=== PATIENT | male | born 1970 | race Hispanic/Latino ===

== ENCOUNTER 2016-08-15 17:44 | Inpatient (IN) | payer MEDICAID, OTHER ==
[2016-08-15 18:41] LABS: BASO % 0.5 % (0.0-2.0); EOS # 0.1 K/uL (0.0-0.7); EOS % 1.3 % (0.0-4.0); HEMATOCRIT 46.7 % (35.0-51.0); LYMPH # 2.1 K/uL (1.0-4.3); LYMPH % 24.4 % (20.0-40.0); MEAN CELL VOLUME 93.7 fL (80.0-94.0); MEAN CORPUSCULAR HGB CONC 34.2 g/dL (33.0-37.0); MEAN PLATELET VOLUME 8.2 fL (7.2-11.7); MONO # 0.8 K/uL (0.0-0.8); MONO % 8.7 % (0.0-10.0); NRBC % 0.1 % (0.0-2.0); RED CELL DISTRIBUTION WIDTH 13.8 % (11.5-14.5); WHITE BLOOD COUNT 8.7 K/uL (4.8-10.8)
[2016-08-15 18:45] LABS: CHLORIDE 102 mmol/L (98-107)
[2016-08-15 18:46] LABS: POTASSIUM 4.2 mmol/L (3.6-5.2); SODIUM 140 mmol/L (132-148)
[2016-08-15 18:48] LABS: ALB/GLOB RATIO 1.5 (1.0-2.1); ALKALINE PHOSPHATASE 88 U/L (38-126); AST/SGOT 25 U/L (17-59); BILIRUBIN,TOTAL 0.5 mg/dL (0.2-1.3); CARBON DIOXIDE 19 mmol/L (22-30); GFR AFRICAN-AMERICAN > 60; TOTAL PROTEIN 8.1 g/dL (6.3-8.3)
[2016-08-15 18:49] LABS: ALCOHOL SERUM 79 mg/dl (0-10); ALT/SGPT 20 U/L (21-72); BLOOD UREA NITROGEN 10 mg/dL (9-20); CALCIUM 9.3 mg/dl (8.6-10.4); GLUCOSE,RANDOM 93 mg/dL (75-110)
[2016-08-15 18:50] LABS: URINE BACTERIA OCC (<OCC); URINE BILIRUBIN NEGATIVE (NEGATIVE); URINE BLOOD NEGATIVE (NEGATIVE); URINE COLOR Yellow (YELLOW); URINE GLUCOSE (UA) NORMAL (Normal); URINE KETONE NEGATIVE (NEGATIVE); URINE LEUKOCYTE ESTERASE NEG Leu/uL (Negative); URINE PROTEIN 1+ mg/dL (NEGATIVE); URINE UROBILINOGEN NORMAL mg/dL (0.2-1.0); WBC URINE 5 /hpf (0-5)
--- NOTE | 2016-08-15 19:56 | C.PDOC ---
History Of Present Illness Patient is a 46 year old male who presents to the ER an ETOH detox prescreen. Patient states he drinks a case of beer each day and admits of ETOH use today. Patient failed ETOH detox approximately 10 times. Patient reports to drinking last night, blacked out, and broke multiple windows in the house he rents. Patient is estranged from his family and ex- due to ETOH abuse. Patient also smokes 1/2 pack of tobacco a day, currently denies any pain or complaints. Time Seen by Provider: 08/15/16 18:54 Chief Complaint (Nursing): Substance Abuse History Per: Patient History/Exam Limitations: no limitations Modifying Factor(s): Alcohol Past Medical History Reviewed: Historical Data, Nursing Documentation, Vital Signs Vital Signs: Last Vital Signs Temp 98 F 08/15/16 21:15 Pulse 101 H 08/15/16 22:28 Resp 18 08/15/16 21:15 BP 138/86 08/15/16 22:28 Pulse Ox 98 08/15/16 22:16 - Medical History PMH: HTN (toprol XL, 50mg OD, amlodipine 5mg OD) Family History: States: Unknown Family Hx - Social History Hx Alcohol Use: Yes Hx Substance Use: Yes Review Of Systems Constitutional: Negative for: Fever, Chills Cardiovascular: Negative for: Palpitations Respiratory: Negative for: Cough Gastrointestinal: Negative for: Nausea, Vomiting, Abdominal Pain, Diarrhea Physical Exam - Physical Exam Appears: Non-toxic, Other (ready face, anxious) Skin: Normal Color, Warm, Dry Head: Atraumatic, Normacephalic Oral Mucosa: Moist Chest: Symmetrical Cardiovascular: Rhythm Regular (Tachycardic) Respiratory: Normal Breath Sounds, No Rales, No Rhonchi, No Wheezing Gastrointestinal/Abdominal: Soft, No Tenderness Neurological/Psych: Oriented x3, Normal Speech, Normal Cognition ED Course And Treatment - Laboratory Results Result Diagrams: 08/15/16 18:34 08/15/16 18:34 O2 Sat by Pulse Oximetry: 98 (Room air) Pulse Ox Interpretation: Normal Progress Note: Discussed with crisis at 19:00. Librium PO, desyrel PO, and atarax PO administered. repeat librium dose and re-eval. Ativan PO and re-eval. Critical Care Time - Critical Care Note Total Time (in mins): 90 Documented critical care: time excludes all time spent performing seperately billable procedures. Disposition Doctor Will See Patient In The: Hospital Counseled Patient/Family Regarding: Studies Performed, Diagnosis - Disposition Disposition: HOSPITALIZED Disposition Time: 20:00 Condition: FAIR - Clinical Impression Clinical Impression: Alcohol dependence - Scribe Statement The provider has reviewed the documentation as recorded by the Mandieibcathy Newton All medical record entries made by the Mandieibcathy were at my direction and personally dictated by me. I have reviewed the chart and agree that the record accurately reflects my personal performance of the history, physical exam, medical decision making, and the department course for this patient. I have also personally directed, reviewed, and agree with the discharge instructions and disposition.
[2016-08-15] MEDS: Metoprolol Succinate 100 mg XL Tab PO SCH (21:54)
[2016-08-16] MEDS: Multiple Vitamins Tab PO SCH (09:41)
[2016-08-16] MEDS: Metoprolol Succinate 100 mg XL Tab PO SCH (09:43)
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
[2016-08-17] MEDS: Multiple Vitamins Tab PO SCH (09:08)
[2016-08-17] MEDS: Metoprolol Succinate 100 mg XL Tab PO SCH (09:09)
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
[2016-08-18] MEDS: Multiple Vitamins Tab PO SCH (09:26)
[2016-08-18] MEDS: Metoprolol Succinate 100 mg XL Tab PO SCH (09:29)
--- NOTE | 2016-08-18 15:12 | PCM.PYCHPN ---
Psychiatric Progress Note - Psychiatric Progress Note Patient seen today, length of contact: 18 min Patient Chief Complaint: "I am better. I need naltrexone" Problems Identified/Issues Discussed: The pt is seen, chart reviewed, case discussed with staff. The pt is compliant with medications and reports no side-effects. Symptoms are improving but needs more time to stabilize. Still anxious, After care discussed, support and psychoeducation given. Naltrexone started - all risks/benefits discussed He will see his PCP in 4 weeks and get a blood work Medication Change: Yes (detox changes daily, naltrexone) Medical Record Reviewed: Yes Mental Status Examination - Cognitive Function Orientation: Person, Place, Situation, Time Memory: Intact Attention: WNL Concentration: WNL Association: WNL Fund of Knowledge: WNL - Mood Mood: Depressed, Anxious - Affect Affect: Broad - Speech Speech: Appropriate - Formal Thought Process Formal Thought Process: No Impairment - Suicidal Ideation Suicidal Ideation: No - Homicidal Ideation Homicidal Ideation: No Goal/Treatment Plan - Goal/Treatment Plan Need for Continued Stay: Discharge may exacerbated symptoms, Severe functional impairment Progress Toward Problem(s) and Goals/Treatment Plan: Alcohol Withdrawal -Librium taper -Supportive therapy -Group therapy and Individualized therapy Alcohol Use Disorder -Supportive therapy -Group therapy and Individualized therapy -CA for abstinence -consider Vivitrol shot after [employer]. -For now, naltrexone started Major Depressive Disorder and anxiety -lexapro 20 Generalized Anxiety Disorder -lexapro 20 mg PO daily -increase gabapentin for anxiety -buspar increased Nicotine Use Disorder -1 nicotine path transdermal daily Peripheral Neuropathy -Gabapentin 600 mg PO TID Hypertension -Continue Medical Management Estimated Date of D/C: 08/19/16 - Smoking Cessation Smoking Cessation Initiated: Yes
[2016-08-19 05:01] VITALS: RESP 18
[2016-08-19 08:26] VITALS: BP 114/76; PULSE 71; TEMP 98; O2SAT 98
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
[2016-08-19] MEDS: Multiple Vitamins Tab PO SCH (09:02)
[2016-08-19] MEDS: Metoprolol Succinate 100 mg XL Tab PO SCH (09:02)
== END 2016-08-19 09:30 | disposition home or self-care (01) | DRG 750 ==
LOC: C.ER 17:44 → C.7D 19:55
PROC: HZ2ZZZZ Detoxification Services for Substance Abuse Treatment (ICD-10-PCS; principal; 2016-08-15)
PROC: GZHZZZZ Group Psychotherapy (ICD-10-PCS; 2016-08-15)
PROC: GZ56ZZZ Individual Psychotherapy, Supportive (ICD-10-PCS; 2016-08-15)
DX: F10.230 Alcohol dependence with withdrawal, uncomplicated (principal); F10.229 Alcohol dependence with intoxication, unspecified; F33.1 Major depressive disorder, recurrent, moderate; I10 Essential (primary) hypertension; G62.9 Polyneuropathy, unspecified; F17.210 Nicotine dependence, cigarettes, uncomplicated; F41.1 Generalized anxiety disorder; Y90.3 Blood alcohol level of 60-79 mg/100 ml

== ENCOUNTER 2017-07-23 20:38 | Inpatient (IN) | payer MEDICAID, OTHER ==
[2017-07-23 20:58] VITALS: BMI 27.9
[2017-07-23] MEDS ORDERED: Multivitamin (MVI) 10 ML, Thiamine 100 MG, Folic Acid 1 MG in Sodium Chloride 0.9% 1,00... IV STA (21:34)
--- NOTE | 2017-07-23 21:36 | C.PDOC ---
History Of Present Illness <Neville Diallo M - Last Filed: 07/24/17 12:08> <Gladys Driscoll - Last Filed: 07/24/17 20:10> 47 y/o male with a PMHx of alcohol abuse and multiple failures at detox, presents requesting detox from alcohol. Last drink was earlier this afternoon. Patient reports history of withdrawal seizures. On arrival patient is uncooperative, cursing, belligerent. States that if he is not offered detox bed he will kill himself. PMD: None (Gladys Driscoll) <Neville Diallo M - Last Filed: 07/24/17 12:08> History Per: Patient History/Exam Limitations: intoxication Onset/Duration Of Symptoms: Days Current Symptoms Are (Timing): Still Present Modifying Factor(s): Alcohol <Gladys Driscoll - Last Filed: 07/24/17 20:10> Time Seen by Provider: 07/23/17 21:33 Chief Complaint (Nursing): Psychiatric Evaluation Past Medical History Reviewed: Historical Data, Nursing Documentation, Vital Signs - Medical History PMH: Bipolar Disorder, Depression, HTN (toprol XL, 50mg OD, amlodipine 5mg OD) Denies: Diabetes, Hepatitis, HIV, Seizures, Sexually Transmitted Disease Other PMH: Alcohol abuse Family History: States: Unknown Family Hx - Social History Hx Alcohol Use: Yes Hx Substance Use: Yes (weed) - Immunization History Hx Tetanus Toxoid Vaccination: Yes Hx Influenza Vaccination: Yes Hx Pneumococcal Vaccination: No <Gladys Driscoll - Last Filed: 07/24/17 20:10> Vital Signs: Last Vital Signs Temp 97.8 F 07/24/17 16:56 Pulse 101 H 07/24/17 16:56 Resp 20 07/24/17 16:56 BP 156/91 H 07/24/17 16:56 Pulse Ox 95 07/24/17 16:56 - [facility] Procedures DETOXIFICATION SERVICES FOR SUBSTANCE ABUSE TREATMENT (08/15/16) GROUP PSYCHOTHERAPY (08/15/16) INDIVIDUAL PSYCHOTHERAPY, SUPPORTIVE (08/15/16) Review Of Systems Except As Marked, All Systems Reviewed And Found Negative. Psych: Positive for: Suicidal ideation, Other (intoxication) <Gladys Driscoll - Last Filed: 07/24/17 20:10> Physical Exam - Physical Exam Appears: No Acute Distress, Agitated Skin: Warm, Dry Head: Atraumatic, Normacephalic Eye(s): bilateral: Normal Inspection, PERRL, EOMI Nose: Normal Oral Mucosa: Moist Neck: Normal, Normal ROM Chest: Symmetrical Cardiovascular: Rhythm Regular, No Murmur Respiratory: Normal Breath Sounds, No Accessory Muscle Use Gastrointestinal/Abdominal: Bowel Sounds (active), Soft, No Tenderness, No Guarding Extremity: Bilateral: Atraumatic, Normal Color And Temperature, Normal ROM Neurological/Psych: Oriented x3, Other (Appears intoxicated, uncooperative) <Gladys Driscoll - Last Filed: 07/24/17 20:10> ED Course And Treatment - Laboratory Results Result Diagrams: 07/23/17 21:56 07/23/17 21:56 <Neville Diallo - Last Filed: 07/24/17 12:08> - Laboratory Results Result Diagrams: 07/23/17 21:56 07/23/17 21:56 Lab Interpretation: Normal Interpretation Of Abnormal: marked alcohol elevation O2 Sat by Pulse Oximetry: 96 (RA) Pulse Ox Interpretation: Normal Progress Note: Despite multiple pushes of Ativan and Geodon,pt remains alert curing and threatening to staff.Will maintain restraints,add ketamine to sedation regimen <Gladys Driscoll - Last Filed: 07/24/17 20:10> Medical Decision Making <Neville Diallo - Last Filed: 07/24/17 12:08> <Gladys Driscoll - Last Filed: 07/24/17 20:10> Medical Decision Making: Time: 21:34 Initial Plan: --Alcohol serum --Urine drug screen --CMP --CBC w/ differential --Urinalysis --Ativan 2 mg IVP --IV fluids --Placed on 1:1 observation --Pending crisis evaluation Pt is now too sedated to be interviewed.Will await return of sobriety to complete interview process (Gladys Driscoll) Disposition <Neville Diallo - Last Filed: 07/24/17 12:08> - Disposition Disposition Time: 20:09 <Gladys Driscoll - Last Filed: 07/24/17 20:10> - Disposition Disposition: HOSPITALIZED Condition: FAIR - Clinical Impression Clinical Impression: Alcohol-induced psychosis, Single major depressive episode, severe, with psychosis <Neville Diallo - Last Filed: 07/24/17 12:08> - Scribe Statement The provider has reviewed the documentation as recorded by the Scribe (Carmen Carrizales) <Gladys Driscoll - Last Filed: 07/24/17 20:10> - Scribe Statement Provider Attestation: All medical record entries made by the Scribe were at my direction and personally dictated by me. I have reviewed the chart and agree that the record accurately reflects my personal performance of the history, physical exam, medical decision making, and the department course for this patient. I have also personally directed, reviewed, and agree with the discharge instructions and disposition. (Gladys Driscoll) Addendum <Neville Diallo - Last Filed: 07/24/17 12:08> <Gladys Driscoll - Last Filed: 07/24/17 20:10> Addendum: 07/24/17 12:[address] Storey and will admit to detox floor. patient remained comfortable during evaluation (Neville Diallo) Disposition <Neville Diallo - Last Filed: 07/24/17 12:08> Disposition Time: 20:09 <Gladys Driscoll - Last Filed: 07/24/17 20:10> Clinical Impression: Moderate major depression, single episode, Alcohol intoxication Disposition: HOSPITALIZED Condition: FAIR
[2017-07-23 22:02] LABS: BASO # 0.1 K/uL (0.0-0.2); BASO % 0.8 % (0.0-2.0); EOS # 0.2 K/uL (0.0-0.7); EOS % 1.7 % (0.0-4.0); HEMOGLOBIN 16.9 g/dL (12.0-18.0); LYMPH # 3.2 K/uL (1.0-4.3); LYMPH % 29.8 % (20.0-40.0); MEAN CELL VOLUME 93.6 fL (80.0-94.0); MEAN CORPUSCULAR HEMOGLOBIN 32.9 pg (27.0-31.0); MEAN CORPUSCULAR HGB CONC 35.1 g/dL (33.0-37.0); MEAN PLATELET VOLUME 7.4 fL (7.2-11.7); MONO # 0.8 K/uL (0.0-0.8); MONO % 7.8 % (0.0-10.0); NEUT # 6.4 K/uL (1.8-7.0); NEUT % 59.9 % (50.0-75.0); NRBC % 0.1 % (0.0-2.0); RBC 5.14 Mil/uL (4.40-5.90); RED CELL DISTRIBUTION WIDTH 14.3 % (11.5-14.5); WHITE BLOOD COUNT 10.7 K/uL (4.8-10.8)
[2017-07-23 22:06] LABS: URINE BACTERIA RARE (<OCC); URINE BILIRUBIN NEGATIVE (NEGATIVE); URINE BLOOD 1+ (NEGATIVE); URINE CLARITY Hazy (Clear); URINE GLUCOSE (UA) NORMAL (Normal); URINE LEUKOCYTE ESTERASE 3+ Leu/uL (Negative); URINE PROTEIN NEGATIVE (NEGATIVE); URINE UROBILINOGEN NORMAL mg/dL (0.2-1.0)
[2017-07-23 22:09] LABS: URINE COLOR YELLOW (YELLOW)
[2017-07-23 22:14] LABS: ALB/GLOB RATIO 1.3 (1.0-2.1); ALBUMIN 4.8 g/dL (3.5-5.0); ALT/SGPT 28 U/L (21-72); AST/SGOT 24 U/L (17-59); BLOOD UREA NITROGEN 6 mg/dL (9-20); CALCIUM 8.9 mg/dl (8.6-10.4); GFR AFRICAN-AMERICAN > 60; GFR NON-AFRICAN AMERICAN > 60
[2017-07-23 22:18] LABS: BARBITURATES, UR NEGATIVE (NEGATIVE); BENZODIAZEPINES, UR NEGATIVE (NEGATIVE); OPIATES, UR NEGATIVE (NEGATIVE); PHENCYCLIDINE, UR NEGATIVE (NEGATIVE)
[2017-07-23] MEDS ORDERED: Ketamine 50 mg/ml Inj (10 ml) IV ONE (23:54)
--- NOTE | 2017-07-24 13:41 | PCM.PSYCH ---
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 Patient states he started drinking again during the second week in June. He states he started to feel depressed again and went back to drinking. He has been for 7 years but when he stops to think about his divorce and kids he gets depressed. He states they because his had an affair. Yesterday he was drinking with his buddies and he stated he was saying things like "I would rather be " and his friends became worried and brought him to the ER. Per the ER the patient was uncooperative and belligerent yesterday evening stating he wanted to harm himself. At this time patient denies thoughts of hurting himself or others. Patient denies hearing voices or seeing things. He was previously sober for one year prior to his recent relapse. He completed a 6 month program at [facility] and he stayed living there up until May of 2017. He states he was also going to AA meetings which helped him stay sober. Last year was he was at [facility] for detox. Patient denies seizures from alcohol withdrawal, denies intubation, denies admission to the medical floor due to alcohol withdrawal. Patient states he drinks about 6 pack-12 pack of beer per day. Smokes marijuana daily. Patient smokes 1 pack per day for the past 30 years. Patient denies other illicit drug use. Psych History: Major depressive disorder Medical History: HTN Family History: Maternal uncle alcohol abuse Medications: Metoprolol; Amlodipine; Gabapentin Allergies: NKDA Current Medications: Active Medications Generic Name Dose Route Start Last Admin Trade Name Davidq PRN Reason Stop Dose Admin Amlodipine Besylate 5 mg 07/24/17 13:15 Norvasc PO DAILY MEHDI Buspirone HCl 15 mg 07/24/17 18:00 Buspar PO BID MEHDI Chlordiazepoxide 0 mg 07/24/17 18:00 Librium PO 07/29/17 17:59 Q6 MEHDI Taper Chlordiazepoxide 25 mg 07/24/17 13:16 Librium PO Q4H PRN Alcohol Withdrawal Clonidine HCl 0.1 mg 07/24/17 13:16 Catapres PO Q4H PRN Symptoms of alcohol withdrawl Escitalopram Oxalate 20 mg 07/25/17 10:00 Lexapro PO DAILY [facility] Folic Acid 1 mg 07/24/17 13:30 Folic Acid PO DAILY [facility] Gabapentin 300 mg 07/24/17 14:00 Neurontin PO TID [facility] Home Med 50 mg 07/24/17 13:13 Hydroxyzine Pamoate [Vistaril] PO Q6 PRN Anxiety Metoprolol Succinate 12.5 mg 07/25/17 10:00 Toprol Xl PO DAILY [facility] Multivitamins 1 tab 07/24/17 13:30 Hexavitamin PO DAILY [facility] Thiamine HCl 100 mg 07/24/17 13:30 Vitamin B1 Tab PO DAILY [facility] Trazodone HCl 100 mg 07/24/17 22:00 Desyrel PO HS [facility] Past Psychiatric History - Past Psychiatric History Pertinent Medical Hx (Current Medical&Sleep Prob, Allergies): Allergies Allergy/AdvReac Type Severity Reaction Status Date / Time No Known Allergies Allergy Verified 07/23/17 20:57 Escitalopram [Lexapro] 20 mg PO DAILY 08/15/16 Gabapentin [Neurontin] 600 mg PO BID 08/15/16 Metoprolol Succinate XL [Toprol XL] 12.5 mg PO STAT 08/15/16 amLODIPine [Norvasc] 5 mg PO DAILY 08/15/16 hydrOXYzine Pamoate [Vistaril] 50 mg PO PRN PRN 08/15/16 traZODone [trazodone Hydrochloride] 100 mg PO HS 08/15/16 Gabapentin [Neurontin] 600 mg PO TID #90 tab 08/18/16 Naltrexone [Revia] 50 mg PO DAILY #30 tab 08/18/16 busPIRone [Buspar] 15 mg PO BID #60 tab 08/18/16 traZODone [Desyrel] 100 mg PO HS #30 tab 08/18/16 Review of Systems - Constitutional Constitutional: Chills - Neurological Neurological: Tremor - Psychiatric Psychiatric: Depression. absent: Anxiety, Hallucinations, Homicidal Ideation, Suicidal Ideation, Visual Hallucinations, Tactile Hallucinations Mental Status Examination - Personal Presentation Personal Presentation: Looks stated age - Affect Affect: Constricted - Motor Activity Motor Activity: Calm - Reliability in Providing Information Reliability in Providing Information: Good - Speech Speech: Organized - Mood Mood: Anxious - Formal Thought Process Formal Thought Process: No Impairment - Cognitive Functions Orientation: Person, Place, Situation, Time Sensorium: Alert Judgement: Intact, as evidence by: Insight regarding need for hospitalization Memory: Recent intact, as evidence by: Ability to recall events of the day - Strength & Assets Inventory Strength & Assets Inventory: Employment status DSM 5 DX - DSM 5 DSM 5 Diagnosis: Major Depression Alcohol withdrawal Alcohol use d/o - severe - Recommended/Plan of Treatment Treatment Recommendations and Plan of Treatment: Norvasc 5mg daily Metoprolol Succinate 12.5mg dialy Buspirone 15mg po bid Librium 25mg po q6h Lexapro 20mg po daily Gabapentin 300mg tid Trazodone 100mg po hs As needed medications All risks, benefits and alternatives of the meds discussed, and the pt agreed and understood. Attend groups and activities Individual therapy daily Supportive therapy and psychoeducation [place] for abstinence CBT for relapse prevention Encourage MAT Refer to rehab or IOP, and self-help groups Refer to outpatient program Teach healthy lifestyle methods, i.e. diet, exercise, meditation 34 min
[2017-07-24] MEDS: Multiple Vitamins Tab PO SCH (13:43)
--- NOTE | 2017-07-24 14:01 | PCM.BM ---
Treatment assets and liabiliti Patient Assests: insightful, self-reliant, good past tx response Patient Liabilities: financial problems, poor support system, relationship conflicts, substance abuse, medical problems, other - Milieu Protocol Maintain good personal hygiene: daily Encourage regular showers, daily Remind patient to perform daily oral care, daily Assist patient to perform ADL's, every shift Encourage regular showers, every shift Remind patient to perform daily oral care, every shift Assist patient to perform ADL's Maintain personal safety: daily Educate patient to report safety concerns to staff, daily Monitor environment for contraband/sharps, every shift Educate patient to report safety concerns to staff, every shift Monitor environment for contraband/sharps Medication safety: Monitor for expected outcome, potential side effects: daily, every shift, Assess barriers to learning: daily, every shift, Assess readiness for medication education: daily, every shift Milieu Narrative: Norvasc 5mg daily Metoprolol Succinate 12.5mg dialy Buspirone 15mg po bid Librium 25mg po q6h Lexapro 20mg po daily Gabapentin 300mg tid Trazodone 100mg po hs As needed medications All risks, benefits and alternatives of the meds discussed, and the pt agreed and understood. Attend groups and activities Individual therapy daily Supportive therapy and psychoeducation [place] for abstinence CBT for relapse prevention Encourage MAT Refer to rehab or IOP, and self-help groups Refer to outpatient program Teach healthy lifestyle methods, i.e. diet, exercise, meditation 34 min Discharge/Continuing Care - Treatment Team Participation Patient/Family/SO Statement: Norvasc 5mg daily Metoprolol Succinate 12.5mg dialy Buspirone 15mg po bid Librium 25mg po q6h Lexapro 20mg po daily Gabapentin 300mg tid Trazodone 100mg po hs As needed medications All risks, benefits and alternatives of the meds discussed, and the pt agreed and understood. Attend groups and activities Individual therapy daily Supportive therapy and psychoeducation [place] for abstinence CBT for relapse prevention Encourage MAT Refer to rehab or IOP, and self-help groups Refer to outpatient program Teach healthy lifestyle methods, i.e. diet, exercise, meditation 34 min
[2017-07-24] MEDS: Tmp-Smz 800 mg-160 mg DS Tab PO SCH (19:51)
[2017-07-25] MEDS: Tmp-Smz 800 mg-160 mg DS Tab PO SCH (08:49)
[2017-07-25] MEDS: Multiple Vitamins Tab PO SCH (09:58)
[2017-07-25] MEDS ORDERED: Metoprolol Succinate 12.5 mg XL PO SCH (10:00)
--- NOTE | 2017-07-25 10:07 | PCM.PYCHDC ---
Mental Status Examination - Mental Status Examination Orientation: Person, Place, Situation, Time Memory: Intact Affect: Broad Speech: Appropriate Attention: WNL Concentration: WNL Association: WNL Fund of Knowledge: WNL Formal Thought Process: No Impairment Description of patient's judgement and insight: limited/limited Psychotic Thoughts and Behaviors: denied Suicidal Ideation: No Current Homicidal Ideation?: No Plan: denied Discharge Summary - Discharge Note Reason for Hospitalization: This is a 47 year old male with past medical history of HTN, , 4 children (18yo; 16yo; 14yo; 12yo), lives with a roommate in [place], 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 Patient states he started drinking again during the second week in June. He states he started to feel depressed again and went back to drinking. He has been for 7 years but when he stops to think about his divorce and kids he gets depressed. He states they because his had an affair. Yesterday he was drinking with his buddies and he stated he was saying things like "I would rather be " and his friends became worried and brought him to the ER. Per the ER the patient was uncooperative and belligerent yesterday evening stating he wanted to harm himself. At this time patient denies thoughts of hurting himself or others. Patient denies hearing voices or seeing things. He was previously sober for one year prior to his recent relapse. He completed a 6 month program at [facility] and he stayed living there up until May of 2017. He states he was also going to AA meetings which helped him stay sober. Last year was he was at [facility] for detox. Patient denies seizures from alcohol withdrawal, denies intubation, denies admission to the medical floor due to alcohol withdrawal. Patient states he drinks about 6 pack-12 pack of beer per day. Smokes marijuana daily. Patient smokes 1 pack per day for the past 30 years. Patient denies other illicit drug use. Psych History: Major depressive disorder Medical History: HTN Family History: Maternal uncle alcohol abuse Medications: Metoprolol; Amlodipine; Gabapentin Allergies: NKDA Consultations:: List each consultation separately and include: 1. Reason for request. 2. Findings. 3. Follow-up Summary of Hospital Course include:: 1. Description of specific treatment plan utilized for patients during their course of treatmen. 2. Summarize the time- course for resolution of acute symptoms and/or regressed behaviors. 3. Describe issues identified and worked on during hospitalization. 4. Describe medication utilized. 5. Describe medical problems identified and treated. 6. Reassessment of suicide risk Summary of Hospital Course: The pt was admitted and started on treatment with psychotherapy, support, psychoeducation and medications. AR and CBT used. The pt attended some groups and activities, as well as milieu therapy. All the risks and benefits of medications were discussed and the patient understood and agreed. The pt requested earlier discharge. This MD educate this patient regarding alcohol withdrawal symptoms including but not limited to nausea, headache, hot and cold sweat, seizure and . This MD recommend to complete the detox treatment. The pt stated that he understand importance of completion of treatment. However, he needs to be d/c because he believes that his withdrawal symptoms are over. He reported craving for etoh. He reported that after discharge he wants to meet with his sponsor and counselor to stay sober. Pt was educated about the early relapse on alcohol. Pt was also educated the different consequences due to noncompliance issues as well as not completing the detox treatment. Pt verbalized understanding and he stated that he will return to nearest ER in case of withdrawal symptoms. Pt denied depressive symptoms, including SI, HI, intent or plan. He denied any access to fire-arm. He denied any previous suicide attempt. He reproted that he wants to live healthy life because he has children and has good social support. 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 . - Diagnosis (1) Alcohol abuse Current Visit: Yes Status: Acute (2) Alcohol dependence Current Visit: Yes Status: Acute - Final Diagnosis (DSM 5) Condition upon Discharge: FAIR DSM 5: alcohol dependence severe alcohol withdrawal symptoms Major depressive disorder UTI Disposition: AGAINST MEDICAL ADVICE Follow-up Treatment Plan: Continue medications after discharge. Follow after care plan as discussed. Use relapse prevention copying skills Return to ER or call 911 if suicidal, homicidal or symptoms relapse. Stay away from stress, alcohol and drugs. See primary doctor once a year. Time spend 28 minutes Prescriptions/Medication Reconciliation: Sulfamethoxazole/Trimethoprim [Bactrim DS Tab] 1 tab PO Q12H 4 Days #8 tab - Smoking Cessation Smoking Cessation Medication prescribed: Yes - Antipsychotic Medications Pt discharged on 2 or more routine antipsychotic medications: No
[2017-07-25 12:37] VITALS: BP 137/91; PULSE 89; RESP 20; TEMP 98.1; O2SAT 96
== END 2017-07-25 13:02 | disposition left against medical advice (07) | DRG 749 ==
LOC: C.ER 20:38 → C.7D 07-24 12:07
PROVIDERS: ADMIT Psychiatry & Neurology Psychiatry; ATTEND Psychiatry & Neurology Psychiatry
PROC: HZ2ZZZZ Detoxification Services for Substance Abuse Treatment (ICD-10-PCS; principal; 2017-07-24)
DX: F10.230 Alcohol dependence with withdrawal, uncomplicated (principal); F32.1 Major depressive disorder, single episode, moderate; N39.0 Urinary tract infection, site not specified; F10.220 Alcohol dependence with intoxication, uncomplicated; F10.259 Alcohol dependence with alcohol-induced psychotic disorder, unspecified; F12.90 Cannabis use, unspecified, uncomplicated; F17.210 Nicotine dependence, cigarettes, uncomplicated; I10 Essential (primary) hypertension; Y90.8 Blood alcohol level of 240 mg/100 ml or more

== ENCOUNTER 2018-03-03 23:46 | Inpatient (IN) | payer MEDICAID, OTHER ==
[2018-03-03 23:48] VITALS: BMI 27.9
--- NOTE | 2018-03-04 00:06 | C.PDOC ---
History Of Present Illness 47 year old male presents to the ED requesting alcohol detox. Patient re ports his last drink was 20 minutes [employer]. Patient denies SI/HI, hallucinations, CP, SOB, abdominal pain, injury, fall, trauma. Time Seen by Provider: 03/04/18 00:06 Chief Complaint (Nursing): Substance Abuse History Per: Patient History/Exam Limitations: intoxication Onset/Duration Of Symptoms: Hrs Current Symptoms Are (Timing): Still Present Suicide/Self Injury Attempted (Context): None Modifying Factor(s): Alcohol Associated Symptoms: denies: Depression, Suicidal Thoughts, Suicidal Plan Recent travel outside of the [place]: No Additional History Per: Patient Past Medical History Reviewed: Historical Data, Nursing Documentation, Vital Signs - Medical History PMH: Anxiety, Bipolar Disorder, Depression, HTN (toprol XL, 50mg OD, amlodipine 5mg OD) Denies: Diabetes, Hepatitis, HIV, Chronic Kidney Disease, Seizures, Sexually Transmitted Disease Surgical History: No Surg Hx - [facility] DETOXIFICATION SERVICES FOR SUBSTANCE ABUSE TREATMENT (07/24/17) GROUP PSYCHOTHERAPY (08/15/16) INDIVIDUAL PSYCHOTHERAPY, SUPPORTIVE (08/15/16) Family History: States: Unknown Family Hx - Social History Hx Alcohol Use: Yes Hx Substance Use: Yes (weed) - Immunization History Hx Tetanus Toxoid Vaccination: Yes Hx Influenza Vaccination: Yes Hx Pneumococcal Vaccination: No Review Of Systems Constitutional: Negative for: Fever, Chills Cardiovascular: Negative for: Chest Pain Respiratory: Negative for: Shortness of Breath Gastrointestinal: Negative for: Nausea, Vomiting Skin: Negative for: Rash Psych: Negative for: Depression, Suicidal ideation Physical Exam - Physical Exam Appears: Non-toxic, No Acute Distress Skin: Warm, Dry Head: Normacephalic Eye(s): bilateral: Normal Inspection Oral Mucosa: Moist Neck: Supple Chest: Symmetrical Cardiovascular: Rhythm Regular Respiratory: No Rales, No Rhonchi, No Wheezing Gastrointestinal/Abdominal: Soft, No Tenderness, No Guarding, No Rebound Back: Normal Inspection Extremity: Bilateral: Atraumatic, Normal Color And Temperature, Normal ROM Neurological/Psych: Oriented x3, Normal Speech Gait: Steady ED Course And Treatment - Laboratory Results Result Diagrams: 03/04/18 00:33 03/04/18 00:33 O2 Sat by Pulse Oximetry: 96 (ON RA) Pulse Ox Interpretation: Normal Progress Note: Plan: - Labs. - UA. - Maalox 30 ml PO. - Crisis eval Disposition Discussed With Dr.: Atiya Hay Comment: accepted the pt [facility] is service and took over the care at 3:07 AM Doctor Will See Patient In The: Hospital Counseled Patient/Family Regarding: Studies Performed, Diagnosis - Disposition Disposition: HOSPITALIZED Disposition Time: 00:06 Condition: FAIR Forms: [facility] (Maltese) - POA Present On Arrival: None - Clinical Impression Clinical Impression: Alcohol use disorder, Major depression - Scribe Statement The provider has reviewed the documentation as recorded by the Scribe Won Arellano All medical record entries made by the Scribe were at my direction and person ally dictated by me. I have reviewed the chart and agree that the record accurately reflects my personal performance of the history, physical exam, medical decision making, and the department course for this patient. I have also personally directed, reviewed, and agree with the discharge instructions and disposition. Decision To Admit - Pt Status Changed To: Hospital Disposition Of: Inpatient - Admit Certification Admit to Inpatient:: After my assessment, the patient will require hospitalization for at least two midnights. This is because of the severity of symptoms shown, intensity of services needed, and/or the medical risk in this patient being treated as an outpatient. - InPatient: Physician Admission Certification: I certify that this patient requires 2 or more midnights of care for the following reason:: After my assessment, the patient will require hospitalization for at least two midnights. This is because of the severity of symptoms shown, intensity of services needed, and/or the medical risk in this patient being treated as an outpatient. - . Bed Request Type: Detox Admitting Physician: Atiya Hay Patient Diagnosis: Alcohol use disorder, Major depression
[2018-03-04 00:46] LABS: BASO % 0.3 % (0.0-2.0); EOS # 0.2 K/uL (0.0-0.7); EOS % 3.1 % (0.0-4.0); HEMOGLOBIN 16.3 g/dL (12.0-18.0); LYMPH # 2.5 K/uL (1.0-4.3); LYMPH % 39.6 % (20.0-40.0); MEAN CELL VOLUME 95.7 fL (80.0-94.0); MEAN CORPUSCULAR HEMOGLOBIN 33.4 pg (27.0-31.0); MEAN CORPUSCULAR HGB CONC 34.9 g/dL (33.0-37.0); MEAN PLATELET VOLUME 7.7 fL (7.2-11.7); MONO # 0.8 K/uL (0.0-0.8); MONO % 11.9 % (0.0-10.0); NEUT # 2.9 K/uL (1.8-7.0); NEUT % 45.1 % (50.0-75.0); NRBC % 0.1 % (0.0-2.0); RBC 4.88 Mil/uL (4.40-5.90); RED CELL DISTRIBUTION WIDTH 12.9 % (11.5-14.5); WHITE BLOOD COUNT 6.4 K/uL (4.8-10.8)
[2018-03-04] MEDS ORDERED: Alum-Mag Hydrox-Simethicone Susp (30 mL) PO STA (00:47)
[2018-03-04 00:49] LABS: ALB/GLOB RATIO 1.6 (1.0-2.1); ALBUMIN 4.6 g/dL (3.5-5.0); ALT/SGPT 37 U/L (21-72); AST/SGOT 29 U/L (17-59); BLOOD UREA NITROGEN 8 mg/dL (9-20); CALCIUM 9.1 mg/dl (8.6-10.4); GFR NON-AFRICAN AMERICAN > 60
[2018-03-04 00:54] LABS: GRANULAR CAST 194 /lpf (0-1); SQUAMOUS EPITHIAL 1 /hpf (0-5); URINE BACTERIA RARE (<OCC); URINE BILIRUBIN NEGATIVE (NEGATIVE); URINE BLOOD NEGATIVE (NEGATIVE); URINE CLARITY Hazy (Clear); URINE COLOR Amber (YELLOW); URINE GLUCOSE (UA) NORMAL (Normal); URINE LEUKOCYTE ESTERASE 1+ Leu/uL (Negative); URINE PROTEIN 1+ mg/dL (NEGATIVE); URINE UROBILINOGEN NORMAL mg/dL (0.2-1.0)
[2018-03-04 00:57] LABS: BARBITURATES, UR NEGATIVE (NEGATIVE); BENZODIAZEPINES, UR NEGATIVE (NEGATIVE); OPIATES, UR NEGATIVE (NEGATIVE); PHENCYCLIDINE, UR NEGATIVE (NEGATIVE)
[2018-03-04] MEDS ORDERED: Aluminum Hydroxide/Magnesium Hydroxide Susp (30 mL) ONE (00:57)
[2018-03-04] MEDS ORDERED: Alum-Mag Hydrox-Simethicone Susp (30 mL) ONE (00:58)
[2018-03-04] MEDS: Multiple Vitamins Tab PO SCH (09:40)
--- NOTE | 2018-03-04 09:45 | PCM.PSYCH ---
Initial Psychiatric Evaluation - Initial Psychiatric Evaluation Type of Admission: Voluntary Legal Status: Capacity Chief Complaint (in patient's own words): "Too much alcohol" History of Present Illness and Precipitating Events: He is seen, chart reviewed, and case discussed. He is a 47 year old male who is with four children ages 19, 17, 15, and 13. 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 Pt is very anxious about calling work and his relationship with his children in addition to the alcohol withdrawal. He describes his consumption of alcohol in an average day as 3-4 pints of whiskey and a 12 pack of beer. He began drinking when he was 14 years old and believes it has been a problem ever since. His last drink was 20 minutes RN CAMP to the ED. This is his 3rd detoxification for alcohol in this program. The first time he stayed until completion but during the second stay he left due to work obligations. He has been in multiple rehabilitation centers before including the [facility]. He is unable to count the amount of hospitalizations he has has related to alcohol use. He smokes one pack of cigarettes a day and marijuana a couple times a week. He denies use of any other substances. He is open to attending a program after this. Pt denies suicidal ideations or seizures related to alcohol use. Pt is anxious and shaky. Past Medical History: Hypertension Psychiatric History: Generalized anxiety d/o, Major depressive d/o, Obsessive compulsive d/o Family psych hx: Denied Current Medications: Active Medications Generic Name Dose Route Start Last Admin Trade Name Freq PRN Reason Stop Dose Admin Chlordiazepoxide 25 mg 03/04/18 08:44 Librium PO Q4H PRN Alcohol Withdrawal Chlordiazepoxide 25 mg 03/04/18 10:00 03/04/18 09:40 Librium PO 03/09/18 09:59 25 mg Q6 MEHDI Administration Taper Clonidine HCl 0.1 mg 03/04/18 08:45 Catapres PO Q4H PRN withdrawal symptoms Dicyclomine HCl 10 mg 03/04/18 03:49 03/04/18 03:58 Bentyl PO 10 mg Q6H PRN Administration Other Folic Acid 1 mg 03/04/18 10:00 03/04/18 09:39 Folic Acid PO 1 mg DAILY MEHDI Administration Hydroxyzine HCl 50 mg 03/04/18 08:46 Atarax PO Q6H PRN Anxiety Ibuprofen 600 mg 03/04/18 04:28 03/04/18 04:35 Motrin Tab PO 600 mg Q6H PRN Administration Pain, moderate (4-7) Multivitamins 1 tab 03/04/18 10:00 03/04/18 09:40 Hexavitamin PO 1 tab DAILY MEHDI Administration Thiamine HCl 100 mg 03/04/18 10:00 03/04/18 09:39 Vitamin B1 Tab PO 100 mg DAILY MEHDI Administration Trazodone HCl 50 mg 03/04/18 22:00 Desyrel PO HS PRN Insomnia Past Psychiatric History - Past Psychiatric History Previous Treatment History: Intensive Outpatient Pertinent Medical Hx (Current Medical&Sleep Prob, Allergies): Allergies Allergy/AdvReac Type Severity Reaction Status Date / Time No Known Allergies Allergy Verified 03/04/18 00:08 Escitalopram [Lexapro] 20 mg PO DAILY 08/15/16 amLODIPine [Norvasc] 5 mg PO DAILY 08/15/16 traZODone [Desyrel] 100 mg PO HS 08/15/16 Gabapentin [Neurontin] 600 mg PO TID #90 tab 08/18/16 Naltrexone [Revia] 50 mg PO DAILY #30 tab 08/18/16 busPIRone [Buspar] 15 mg PO BID #60 tab 08/18/16 Metoprolol Succinate XL [Toprol XL] 12.5 mg PO DAILY tab 07/25/17 Mirtazapine [Remeron] 15 mg PO HS tab 07/25/17 Multivitamins [Hexavitamin] 1 tab PO DAILY tab 07/25/17 Review of Systems - Neurological Neurological: UNREMARKABLE - Psychiatric Psychiatric: Abnormal Sleep Pattern, Anhedonia, Anxiety, Depression, Difficulty Concentrating. absent: Hallucinations, Homicidal Ideation, Suicidal Ideation Mental Status Examination - Personal Presentation Personal Presentation: Looks stated age - Affect Affect: Constricted - Motor Activity Motor Activity: Calm - Reliability in Providing Information Reliability in Providing Information: Fair - Speech Speech: Organized - Mood Mood: Depressed, Anxious - Formal Thought Process Formal Thought Process: No Impairment - Cognitive Functions Orientation: Person, Place, Situation, Time Sensorium: Alert Attention/Concentration: Attentive Estimate of Intelligence: Average Judgement: Intact, as evidence by: Insight regarding need for hospitalization Memory: Recent intact, as evidence by: Ability to recall events of the day, Remote intact, as evidenced by: Abilit to recall sig. life events - Risk Risk: Withdrawal, Diminished functioning - Strength & Assets Inventory Strength & Assets Inventory: Employment status, Cooperative - Limitations Limitations: Living alone DSM 5 DX - DSM 5 DSM 5 Diagnosis: Alcohol withdrawal Alcohol use d/o severe Tobacco use d/o severe Cannabis use d/o moderate General anxiety d/o Major depressive d/o Alcohol-induced depressive d/o? Hypertension - Recommended/Plan of Treatment Treatment Recommendations and Plan of Treatment: Taper with librium Gabapentin for augmentation Lexapro for depression and MEHREEN As needed medications All risks, benefits and alternatives of the meds discussed, and the pt agreed and understood. Attend groups and activities Supportive therapy and psychoeducation [place] for abstinence CBT for relapse prevention Encourage MAT Refer to rehab or IOP, and self-help groups Teach healthy lifestyle methods, i.e. diet, exercise, meditation Smoking cessation with [place] Nicotine patch if needed 34 min Projected ELOS: 5 days Prognosis: good w treatment - Smoking Cessation Smoking Cessation Initiated: Yes
[2018-03-04] MEDS: Metoprolol Succinate 100 mg XL Tab PO SCH (11:57)
[2018-03-04] MEDS: Bacitracin 500 Units/gm Oint Foilpak UD TOP SCH ×2 (13:51→17:27)
[2018-03-04] MEDS ORDERED: Aluminum Hydroxide/Magnesium Hydroxide Susp (30 mL) PO PRN ×2 (14:34→22:24)
[2018-03-05] MEDS: Multiple Vitamins Tab PO SCH (09:37)
[2018-03-05] MEDS: Metoprolol Succinate 100 mg XL Tab PO SCH (09:38)
[2018-03-05] MEDS: Bacitracin 500 Units/gm Oint Foilpak UD TOP SCH ×3 (09:41→18:00)
--- NOTE | 2018-03-05 11:48 | PCM.PYCHPN ---
Psychiatric Progress Note - Psychiatric Progress Note Patient seen today, length of contact: 18 min Patient Chief Complaint: "very anxious" Problems Identified/Issues Discussed: The pt is seen, chart reviewed, case discussed with staff. The pt is compliant with medications and reports no side-effects. Symptoms are improving but needs more time to stabilize. Anxiety mgt discussed, viviana increased Pt attends groups and activities. Support given, psycho-education provided. After care discussed. Medication Change: Yes (detox changes daily, increase gabapenitn) Mental Status Examination - Cognitive Function Orientation: Person, Place, Situation, Time Memory: Intact Attention: Poor Concentration: Poor Association: WNL Fund of Knowledge: Poor - Mood Mood: Depressed, Anxious - Affect Affect: Constricted - Formal Thought Process Formal Thought Process: No Impairment - Suicidal Ideation Suicidal Ideation: No - Homicidal Ideation Homicidal Ideation: No Goal/Treatment Plan - Goal/Treatment Plan Need for Continued Stay: Discharge may exacerbated symptoms, Severe functional impairment Progress Toward Problem(s) and Goals/Treatment Plan: Taper with librium Gabapentin for augmentation Lexapro for depression and MEHREEN As needed medications All risks, benefits and alternatives of the meds discussed, and the pt agreed and understood. Attend groups and activities Supportive therapy and psychoeducation MT for abstinence CBT for relapse prevention Encourage MAT Refer to rehab or IOP, and self-help groups Teach healthy lifestyle methods, i.e. diet, exercise, meditation Smoking cessation with MT Nicotine patch if needed
--- NOTE | 2018-03-05 11:51 | PCM.BM ---
<Janie Ring - Last Filed: 03/05/18 11:49> Treatment Plan Problems - Problems identified on initial assessmt potential for alcohol withdrawals Date Initiated: 03/04/18 Assessment reference: NA Status: Active Treatment assets and liabiliti Patient Assests: cooperative, insightful, self-reliant, ADL independent, negotiates basic needs, good past tx response Patient Liabilities: poor support system, relationship conflicts, substance abuse - Milieu Protocol Maintain good personal hygiene: daily Encourage regular showers, daily Remind patient to perform daily oral care, daily Assist patient to perform ADL's Conduct patient checks and document Observation sheet: Q15 minutes Maintain personal safety: every shift Educate patient to report safety concerns to staff, every shift Monitor environment for contraband/sharps Medication safety: Monitor for expected outcome, potential side effects: every shift, Assess barriers to learning: every shift, Assess readiness for medication education: every shift Milieu Narrative: Taper with librium Gabapentin for augmentation Lexapro for depression and MEHREEN As needed medications All risks, benefits and alternatives of the meds discussed, and the pt agreed and understood. Attend groups and activities Supportive therapy and psychoeducation MD for abstinence CBT for relapse prevention Encourage MAT Refer to rehab or IOP, and self-help groups Teach healthy lifestyle methods, i.e. diet, exercise, meditation Smoking cessation with MD Nicotine patch if needed Discharge/Continuing Care - Treatment Team Participation Patient/Family/SO Statement: Taper with librium Gabapentin for augmentation Lexapro for depression and MEHREEN As needed medications All risks, benefits and alternatives of the meds discussed, and the pt agreed and understood. Attend groups and activities Supportive therapy and psychoeducation MD for abstinence CBT for relapse prevention Encourage MAT Refer to rehab or IOP, and self-help groups Teach healthy lifestyle methods, i.e. diet, exercise, meditation Smoking cessation with MD Nicotine patch if needed <Atiya Hay - Last Filed: 03/06/18 12:16> - Diagnosis (1) Alcohol dependence Status: Acute Interventions: 03/06/18 12:16 * Assess 7x/week regarding severity of withdrawal * Educate regarding risks, benefits, side effects and alternatives of medications * Use Motivational Interviewing for abstinence * Use CBT for relapse prevention * Medication management for withdrawal symptoms * Encourage medication assisted treatment * (2) Moderate major depression, single episode Status: Acute Interventions: 03/06/18 12:16 * Assess 7x/week regarding severity of withdrawal * Educate regarding risks, benefits, side effects and alternatives of medications * Use Motivational Interviewing for abstinence * Use CBT for relapse prevention * Medication management for withdrawal symptoms * Encourage medication assisted treatment *
[2018-03-06] MEDS: Multiple Vitamins Tab PO SCH (09:54)
[2018-03-06] MEDS: Metoprolol Succinate 100 mg XL Tab PO SCH (09:54)
[2018-03-06] MEDS: Bacitracin 500 Units/gm Oint Foilpak UD TOP SCH ×3 (09:54→17:11)
--- NOTE | 2018-03-06 12:16 | PCM.PYCHPN ---
Psychiatric Progress Note - Psychiatric Progress Note Patient seen today, length of contact: 18 min Patient Chief Complaint: "Still very anxious" Problems Identified/Issues Discussed: The pt is seen, chart reviewed, case discussed with staff. Support and psychoeducation given, CBT and MO used briefly No new symptoms reported, improving slowly and needs more time No SEs from medications, risks discussed. After care discussed. Wants to leave tomorrow instead of Sunday Risks of rushed detox discussed Medication Change: Yes (detox changes daily, increase gabapenitn) Medical Record Reviewed: Yes Mental Status Examination - Cognitive Function Orientation: Person, Place, Situation, Time Memory: Intact Attention: Poor Concentration: Poor Association: WNL Fund of Knowledge: Poor - Mood Mood: Depressed, Anxious - Affect Affect: Constricted - Formal Thought Process Formal Thought Process: No Impairment - Suicidal Ideation Suicidal Ideation: No - Homicidal Ideation Homicidal Ideation: No Goal/Treatment Plan - Goal/Treatment Plan Need for Continued Stay: Discharge may exacerbated symptoms, Severe functional impairment Progress Toward Problem(s) and Goals/Treatment Plan: Taper with librium Gabapentin for augmentation Lexapro for depression and MEHREEN As needed medications All risks, benefits and alternatives of the meds discussed, and the pt agreed and understood. Attend groups and activities Supportive therapy and psychoeducation MO for abstinence CBT for relapse prevention Encourage MAT Refer to rehab or IOP, and self-help groups Teach healthy lifestyle methods, i.e. diet, exercise, meditation Smoking cessation with MO Nicotine patch if needed Estimated Date of D/C: 03/07/18
[2018-03-07 06:18] VITALS: RESP 19
--- NOTE | 2018-03-07 08:48 | PCM.PYCHDC ---
Mental Status Examination - Mental Status Examination Orientation: Person, Place, Situation, Time Memory: Intact Mood: Anxious Affect: Broad Speech: Appropriate Attention: WNL Concentration: WNL Association: WNL Fund of Knowledge: WNL Formal Thought Process: No Impairment Suicidal Ideation: No Current Homicidal Ideation?: No Discharge Summary - Discharge Note Reason for Hospitalization: Alcohol detox Consultations:: List each consultation separately and include: 1. Reason for request. 2. Findings. 3. Follow-up Summary of Hospital Course include:: 1. Description of specific treatment plan utilized for patients during their course of treatmen. 2. Summarize the time- course for resolution of acute symptoms and/or regressed behaviors. 3. Describe issues identified and worked on during hospitalization. 4. Describe medication utilized. 5. Describe medical problems identified and treated. 6. Reassessment of suicide risk Summary of Hospital Course: On Admission: He is seen, chart reviewed, and case discussed. He is a 47 year old male who is with four children ages 19, 17, 15, and 13. 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 Pt is very anxious about calling work and his relationship with his children in addition to the alcohol withdrawal. He describes his consumption of alcohol in an average day as 3-4 pints of whiskey and a 12 pack of beer. He began drinking when he was 14 years old and believes it has been a problem ever since. His last drink was 20 minutes [employer] to the ED. This is his 3rd detoxification for alcohol in this program. The first time he stayed until completion but during the second stay he left due to work obligations. He has been in multiple rehabilitation centers before including the [facility] emergency department [facility]. He is unable to count the amount of hospitalizations he has has related to alcohol use. He smokes one pack of cigarettes a day and marijuana a couple times a week. He denies use of any other substances. He is open to attending a program after this. Pt denies suicidal ideations or seizures related to alcohol use. Pt is anxious and shaky. Past Medical History: Hypertension Psychiatric History: Generalized anxiety d/o, Major depressive d/o, Obsessive compulsive d/o Family psych hx: Denied Hospital course: The pt was admitted and started on treatment with psychotherapy, support, psychoeducation and medications. [facility] and CBT used. The pt attended groups and activities, as well as milieu therapy. All the risks and benefits of medications are discussed and the patient understood and agreed. The pt improved with the treatments provided. After care discussed with the patient. He will attend [facility] - Final Diagnosis (DSM 5) Condition upon Discharge: IMPROVED DSM 5: Alcohol withdrawal Alcohol use d/o severe Tobacco use d/o severe Cannabis use d/o moderate General anxiety d/o Major depressive d/o Alcohol-induced depressive d/o? Hypertension Disposition: HOME/ ROUTINE Follow-up Treatment Plan: Continue below medications after discharge. Follow after care plan as discussed. Use relapse prevention skills Return to ER or call 911 if suicidal, homicidal or symptoms relapse. Stay away from stress, alcohol and drugs. See primary doctor regularly and get labs. Prescriptions/Medication Reconciliation: amLODIPine [Norvasc] 5 mg PO DAILY #30 tab Escitalopram [Lexapro] 10 mg PO DAILY #30 tab Gabapentin [Neurontin] 600 mg PO TID #90 tab hydrOXYzine HCl [Atarax] 50 mg PO Q6H PRN #30 tab PRN Reason: Anxiety Metoprolol Succinate XL [Toprol XL] 100 mg PO DAILY #30 tab Naltrexone [Revia] 50 mg PO DAILY #30 tab
[2018-03-07] MEDS: Bacitracin 500 Units/gm Oint Foilpak UD TOP SCH (09:07)
[2018-03-07] MEDS: Multiple Vitamins Tab PO SCH (09:08)
[2018-03-07] MEDS: Metoprolol Succinate 100 mg XL Tab PO SCH (09:09)
[2018-03-07 10:41] VITALS: BP 126/84; PULSE 71; TEMP 98.4; O2SAT 98
== END 2018-03-07 09:30 | disposition home or self-care (01) | DRG 772 ==
LOC: C.ER 23:46 → C.7D 03-04 03:04
PROVIDERS: ADMIT Psychiatry & Neurology Psychiatry; ATTEND Psychiatry & Neurology Psychiatry
PROC: HZ2ZZZZ Detoxification Services for Substance Abuse Treatment (ICD-10-PCS; principal; 2018-03-04)
PROC: HZ52ZZZ Individual Psychotherapy for Substance Abuse Treatment, Cognitive-Behavioral (ICD-10-PCS; 2018-03-04)
PROC: HZ59ZZZ Individual Psychotherapy for Substance Abuse Treatment, Supportive (ICD-10-PCS; 2018-03-04)
PROC: HZ56ZZZ Individual Psychotherapy for Substance Abuse Treatment, Psychoeducation (ICD-10-PCS; 2018-03-04)
PROC: HZ42ZZZ Group Counseling for Substance Abuse Treatment, Cognitive-Behavioral (ICD-10-PCS; 2018-03-04)
PROC: HZ46ZZZ Group Counseling for Substance Abuse Treatment, Psychoeducation (ICD-10-PCS; 2018-03-04)
PROC: GZHZZZZ Group Psychotherapy (ICD-10-PCS; 2018-03-04)
PROC: GZ58ZZZ Individual Psychotherapy, Cognitive-Behavioral (ICD-10-PCS; 2018-03-04)
PROC: GZ56ZZZ Individual Psychotherapy, Supportive (ICD-10-PCS; 2018-03-04)
DX: F10.230 Alcohol dependence with withdrawal, uncomplicated (principal); F32.1 Major depressive disorder, single episode, moderate; I10 Essential (primary) hypertension; Y90.8 Blood alcohol level of 240 mg/100 ml or more; F12.20 Cannabis dependence, uncomplicated; F17.210 Nicotine dependence, cigarettes, uncomplicated; F41.1 Generalized anxiety disorder